=== PATIENT | female | born 1960 | race Caucasian/White ===

== ENCOUNTER 2018-09-28 21:39 | Emergency (ER) | payer OTHER ==
[~2018-09-28] VITALS: Ht 154.9 cm; Wt 74.8 kg
[2018-09-28 21:55] VITALS: Ht 154.9 cm; Wt 74.8 kg
[2018-09-28 23:25] LABS: BASOPHIL % 0.6 % (0-2); PLATELET COUNT 176 x10^3mcL (130-400)
[2018-09-28 23:36] LABS: RED CELL DISTRIBUTION WIDTH 16.1 % (11.5-14.5)
[2018-09-29] LABS: CALCIUM 8.5 mg/dL (8.5-10.1); CARBON DIOXIDE 20.8 mmol/L (21-32); CHLORIDE SERUM 105 mmol/L (98-107); CREATININE SERUM 0.7 mg/dL (0.6-1.0); GFR1 > 60 mL/min; GLUCOSE SERUM 106 mg/dL (74-106); POTASSIUM SERUM 4.2 mmol/L (3.5-5.1); SODIUM SERUM 136 mmol/L (136-145)
[2018-09-29 00:54] VITALS: BP 137/68
== END 2018-09-29 00:54 | disposition home or self-care (01) ==
LOC: ED 21:39
PROVIDERS: Emergency Medicine
DX: M25.551 Pain in right hip (principal); M79.651 Pain in right thigh; R09.81 Nasal congestion; H92.02 Otalgia, left ear; I10 Essential (primary) hypertension
CPT/HCPCS: 36415; J1885; Q0092